=== PATIENT | female | born 1985 | race Caucasian/White ===

== ENCOUNTER 2021-05-03 12:08 | Emergency (ER) | payer SELFPAY ==
[~2021-05-03] VITALS: Ht 167.6 cm; Wt 81.6 kg
[2021-05-03] MEDS ORDERED: methylPREDNISolone SOD SUCC 125 MG/2 ML VL IM ONE (14:15)
[2021-05-03] MEDS ORDERED: EPINEPHrine HCL 1 MG/1 ML AMP SC ONE (14:15)
[2021-05-03] MEDS ORDERED: diphenhdrAMINE HCL 25 MG CAP PO ONE (14:15)
[2021-05-03 14:56] VITALS: BP 128/86
== END 2021-05-03 14:53 | disposition home or self-care (01) ==
LOC: ER 12:08
DX: T78.40XA Allergy, unspecified, initial encounter (principal); X58.XXXA Exposure to other specified factors, initial encounter; Y93.89 Activity, other specified; Y92.89 Other specified places as the place of occurrence of the external cause; Y99.8 Other external cause status
CPT/HCPCS: 96372; 99284; J0171; J2930

== ENCOUNTER 2024-01-25 19:27 | Emergency (ER) | payer OTHER ==
[~2024-01-25] VITALS: Ht 167.6 cm; Wt 73.0 kg
[2024-01-25 21:12] VITALS: BP 142/74; PULSE 90; RESP 18; TEMP 99.1; O2SAT 96
[2024-01-25] MEDS ORDERED: AUG875T PO (21:18)
[2024-01-25] MEDS ORDERED: IBUP1TAB5 PO (21:18)
[2024-01-25] MEDS ORDERED: OFL50TS OT (21:18)
[2024-01-25] MEDS: AMOXICILLIN/CLAVUL 875 MG TAB PO ONE (21:31)
[2024-01-25] MEDS: IBUPROFEN 800 MG TAB PO ONE (21:32)
== END 2024-01-25 21:16 | disposition home or self-care (01) ==
LOC: ER 19:27
DX: H66.93 Otitis media, unspecified, bilateral (principal); J45.909 Unspecified asthma, uncomplicated; F17.210 Nicotine dependence, cigarettes, uncomplicated

== ENCOUNTER 2024-02-02 00:06 | Emergency (ER) | payer OTHER ==
[~2024-02-02] VITALS: Ht 167.6 cm; Wt 112.1 kg
[~2024-02-02 00:06] MED LIST: AUG875T PO; IBUP1TAB5 PO; OFL50TS OT
[2024-02-02 01:42] LABS: Urine Bacteria MANY /hpf (None Seen); Urine Blood 2+ /uL (Negative); Urine Clarity HAZY (Clear); Urine Color Yellow (Yellow); Urine Mucus FEW (None Seen); Urine Protein, UAD 2+ (Negative); Urine Specific Gravity 1.025 (1.001-1.035); Urine Urobilinogen Normal (Negative); Urine WBC 3 /hpf (0 - 5)
[2024-02-02] MEDS ORDERED: IBUP-1456 PO (01:43)
[2024-02-02] MEDS ORDERED: ACET500T58 PO (01:43)
[2024-02-02 02:02] VITALS: BP 146/87; PULSE 95; RESP 17; TEMP 99.2; O2SAT 95
== END 2024-02-02 02:03 | disposition home or self-care (01) ==
LOC: ER 00:06
DX: B34.9 Viral infection, unspecified (principal); J45.909 Unspecified asthma, uncomplicated; F17.210 Nicotine dependence, cigarettes, uncomplicated; Z32.02 Encounter for pregnancy test, result negative
CPT/HCPCS: 81001; 81025

== ENCOUNTER 2024-10-10 22:16 | Emergency (ER) | payer OTHER ==
[~2024-10-10] VITALS: Ht 167.6 cm; Wt 114.5 kg
[~2024-10-10 22:16] MED LIST changes: +ACET500T58 PO; +IBUP-1456 PO
[2024-10-10 23:54] LABS: Rapid Influenza A Negative (Negative); Rapid Influenza B Negative (Negative)
[2024-10-10 23:55] LABS: COVID19 ANTIGEN SOFIA FIA NEGATIVE (NEGATIVE)
[2024-10-11] MEDS ORDERED: AZIT-43 PO (00:26)
[2024-10-11] MEDS ORDERED: BENZ100C97 PO (00:26)
[2024-10-11] MEDS ORDERED: METH4PAK PO (00:26)
[2024-10-11] MEDS ORDERED: ALBUAER3 IN (00:26)
--- NOTE | 2024-10-11 00:27 | ED.PDOC ---
SOB-HPI HPI Comments This is a 39-year-old female patient presents to the ED chief complaint cold- like symptoms x2 weeks. Patient complaining of productive cough, yellow mucus thickened nature. She also reports subjective fevers at home. Patient was also hypertensive on exam. She reports history of high blood pressure x4 years but not currently taking any medications. She denies chest pain, headache, shortness of breath, difficulty breathing, slurred speech, numbness, weakness, or any focal neuro deficits. Chief Complaint: Flu like Time Seen by MD: 22:32 Primary Care Provider: NONE Reviewed notes: Nurses Notes, Medications, Allergies Information Source: Patient Mode of Arrival: Ambulatory Past Medical History PAST MEDICAL HISTORY: Asthma Surgical History: Denies all surgeries DIRECTOR OF HEALTH EDUCATION History: No Pertinent DIRECTOR OF HEALTH EDUCATION History Family History Family History: Unknown Social History Smoker: Cigarettes Alcohol: Denies ETOH Use Drugs: Denies Drug Use Lives In: Home Constitutional: reports: fever; denies: chills, diaphoresis, fatigue, malaise, sweats, weakness, others EENTM: denies: blurred vision, double vision, ear bleeding, ear discharge, ear drainage, ear pain, ear ringing, eye pain, eye redness, hearing loss, mouth pain, mouth swelling, nasal discharge, nose bleeding, nose congestion, nose pain, photophobia, tearing, throat pain, throat swelling, voice changes, others Respiratory: reports: cough; denies: hemoptysis, orthopnea, SOB at rest, shortness of breath, SOB with excertion, stridor, wheezing, others Cardiovascular: denies: chest pain, dizzy spells, diaphoresis, Dyspnea on exertion, edema, irregular heart beat, left arm pain, lightheadedness, palpitations, PND, syncope, others Gastrointestinal: denies: abdomen distended, abdominal pain, blood streaked bowels, constipated, diarrhea, dysphagia, difficulty swallowing, hematemesis, melena, nausea, poor appetite, poor fluid intake, rectal bleeding, rectal pain, vomiting, others Genitourinary: denies: abnormal vagina bleeding, burning, dyspareunia, dysuria, flank pain, frequency, hematuria, incontinence, pain, , vagina discharge, urgency, others Neurological: denies: dizziness, fainting, headache, left sided numbness, left sided weakness, numbness, paresthesia, pre-existing deficit, right sided numbness, right sided weakness, seizure, speech problems, tingling, tremors, weakness, others Musculoskeletal: denies: back pain, gout, joint pain, joint swelling, muscle pain, muscle stiffness, neck pain, others Integumetry: denies: bruises, change in color, change in hair/nails, dryness, laceration, lesions, lumps, rash, wounds, others Allergic/Immunocompromised: denies: Difficulty Healing, Frequent Infections, Hives, Itching, others Hematologic/Lymphatic: denies: anemia, blood clots, easy bleeding, easy bruising, swollen glands, others Endocrine: denies: excessive hunger, excessive sweating, excessive thirst, excessive urination, flushing, intolerance to cold, intolerance to heat, unexplained weight gain, unexplained weight loss, others Psychiatric: denies: anxiety, bipolar disorder, depression, hopeless, panic disorder, schizophrenia, sleepless, suicidal, others Physical Exam General Appearance: No Apparent Distress, Normal HEENT: Normal ENT Inspection, Pharynx Normal, TMs Normal Neck: Full Range of Motion, Non-Tender Respiratory: Chest Non-Tender, No Accessory Muscle Use, No Respiratory Distress, Rhonchi Cardiovascular: No Edema, No JVD, No Murmur, No Gallop, Normal Peripheral Pulses, Regular Rate/Rhythm Breast Exam: Deferred Gastrointestinal: No Organomegaly, Non Tender, No Pulsatile Mass, Normal Bowel Sounds, Soft Genitalia: Deferred Pelvic: Deferred Rectal: Deferred Extremities: Normal capillary refill, Normal inspection, Normal range of motion, Non-tender, No pedal edema Musculoskeletal : Apperance: Normal Neurologic: Alert, scroll saw operator II-XII nml as Tested, No Motor Deficits, Normal Affect, Normal Mood, No Sensory Deficits Cerebellar Function: Normal Reflexes: Normal Skin: Dry, Normal Color, Warm Lymphatic: No Adenopathy Was a procedure done? Was a procedure done?: No Differential Dx Differential Diagnosis: Bronchitis, Pneumonia X-Ray, Labs, Meds, VS Vital Signs Date Time Temp Pulse Resp B/P (MAP) Pulse Ox O2 Delivery O2 Flow Rate FiO2 10/11/24 00:38 92 19 97 Room Air 10/11/24 00:38 98.6 92 19 184/88 (120) 97 98.6 10/10/24 22:25 97.8 99 16 173/92 (119) 96 10/10/24 22:25 16 96 Room Air* 0 21 Lab Test 10/10/24 23:05 Range/Units Influenza Type A Antigen Negative Negative Influenza Type B Antigen Negative Negative SARS-CoV-2 Antigen (Rapid) Negative NEGATIVE Current Medications Medications (Trade) Dose Ordered Sig/Sugey Route Start Time Stop Time Status Last Admin Dexamethasone Sodium Phosphate (Decadron Injection) 10 mg ONCE ONCE IM 10/11/24 00:45 10/11/24 00:46 DC 10/11/24 00:35 X-Ray, Labs, Meds, VS Comment Flu and COVID swab negative. Likely bacterial has been going on for 2 weeks start trial of azithromycin and Medrol Dosepak. 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 Furthermore, patient is started on low dose losartan 25 mg once daily. Advised her to follow up with her PCP pick up truck driver [id number] blood pressure cuff monitor her blood pressure daily record and bringing results to her next appointment. Patient was also advised to rest increase p.o. fluids with electrolytes. Return to the ER for chest pain, difficulty breathing, shortness of breath, worst headache of the life, slurred speech, or any neuro focal defic its. Patient agrees with discharge plan of care Time of 1ST Reevaluation: 00:22 Reevaluation 1ST: Improved Patient Education/Counseling: Diagnosis, Treatment, Prognosis, Need For Follow Up Family Education/Counseling: Diagnosis, Prognosis, Need For Follow Up Departure 1 Departure Time of Disposition: 00:27 Impression: Primary Impression: Upper respiratory infection Qualified Codes: J06.9 - Acute upper respiratory infection, unspecified Additional Impression: Hypertension Qualified Codes: I10 - Essential (primary) hypertension Disposition: 01 HOME / SELF CARE / HOMELESS Condition: Stable Additional Instructions: Monitor your blood pressure daily and record the readings and bring in to your next doctor's appointment. public works supervisor a blood pressure cuff [id number]. Return to the ER for chest pain, difficulty breathing, worst headache of the life, slurred speech, or any neuro deficits. e-Prescriptions Losartan Potassium (Losartan Potassium) 25 Mg Tab 1 TAB PO DAILY for 30 Days, #30 TAB 1 Refill Prov: GEOVANNA TINSLEY 10/11/24 Albuterol Sulfate (VENTOLIN MDI) 90 Mcg Ih 90 MCG IN Q6HP PRN for 14 Days, #1 INHALER Prov: GEOVANNA TINSLEY [employer]ODUCT LINE MANAGER 10/11/24 Benzonatate (Benzonatate) 100 Mg Cap 1-2 CAP PO Q4HR PRN for 4 Days, #30 CAP Prov: GEOVANNA TINSLEY PRODUCT LINE MANAGER 10/11/24 Methylprednisolone (Medrol Dosepak) 4 Mg Lj 4 MG PO UD for 6 Days, #21 TAB UAD Prov: GEOVANNA TINSLEY [facility] 10/11/24 Azithromycin (Azithromycin) 250 Mg Tab 250 MG PO DAILY MDD 500 for 5 Days, #6 TAB 0 Refills 2 TABLETS ORALLY ON DAY ONE, THEN 1 TABLET ORALLY DAILY FOR 4 DAYS Prov: GEOVANNA TINSLEY [facility] 10/11/24 Discharged With: Spouse Critical Care Note Critical Care Time?: No Stability Stability form required: No Heart Score Heart Score: Heart Score Response (Comments) Value History N/A 0 EKG N/A 0 Age <45 0 Risk Factors N/A 0 Troponin N/A 0 Total 0 GEOVANNA TINSLEY [facility] Oct 11, 2024 00:27
[2024-10-11] MEDS ORDERED: PROMETHAZINE W/CODEINE 5 ML ORAL SYRUP PO ONE (00:30)
[2024-10-11] MEDS: DexAMETHasone SOD PHOS 10MG/1ML VIAL INJ IM ONE (00:35)
[2024-10-11 00:38] VITALS: BP 184/88; PULSE 92; RESP 19; TEMP 98.6; O2SAT 97
[2024-10-11] MEDS ORDERED: LOSA-533 PO (00:38)
== END 2024-10-11 00:59 | disposition home or self-care (01) ==
LOC: ER 22:16
DX: J06.9 Acute upper respiratory infection, unspecified (principal); I10 Essential (primary) hypertension; J45.909 Unspecified asthma, uncomplicated; F17.210 Nicotine dependence, cigarettes, uncomplicated; Z79.899 Other long term (current) drug therapy; Z20.822 Contact with and (suspected) exposure to COVID-19
CPT/HCPCS: 36415; 87426; 87804; 96372; 99283; J1100

== ENCOUNTER 2024-11-10 17:34 | Emergency (ER) | payer OTHER ==
[~2024-11-10] VITALS: Ht 167.6 cm; Wt 113.9 kg
[~2024-11-10 17:34] MED LIST changes: +ALBUAER3 IN; +AZIT-43 PO; +BENZ100C97 PO; +LOSA-533 PO; +METH4PAK PO
[2024-11-10 18:21] VITALS: BP 150/76; PULSE 96; RESP 16; TEMP 98.9; O2SAT 96
[2024-11-10] MEDS: PROMETHAZINE W/CODEINE 5 ML ORAL SYRUP PO ONE (19:09)
--- NOTE | 2024-11-10 19:44 | ED.PDOC ---
SOB-HPI HPI Comments Save 39-year-old female presents to the ED chief complaint flu-like symptoms x4 days. Patient reports productive cough, fevers, nausea, and body fatigue. She states taking [id number] medications with some relief. She has also been here with her 2 kids with the same symptoms. He has difficulty breathing shor tness of breath chest pain diarrhea or vomiting. Chief Complaint: Flu like Time Seen by MD: 18:21 Primary Care Provider: NONE Reviewed notes: Nurses Notes, Medications, Allergies Information Source: Patient Mode of Arrival: Ambulatory Past Medical History PAST MEDICAL HISTORY: Asthma Surgical History: Denies all surgeries COOK BOX FILLER History: No Pertinent COOK BOX FILLER History Family History Family History: Unknown Social History Smoker: Cigarettes Alcohol: Denies ETOH Use Drugs: Denies Drug Use Lives In: Home Constitutional: reports: fatigue, fever; denies: chills, diaphoresis, malaise, sweats, weakness, others EENTM: reports: nasal discharge Respiratory: reports: cough; denies: hemoptysis, orthopnea, SOB at rest, shortness of breath, SOB with excertion, stridor, wheezing, others Cardiovascular: denies: chest pain, dizzy spells, diaphoresis, Dyspnea on exertion, edema, irregular heart beat, left arm pain, lightheadedness, palpitations, PND, syncope, others Gastrointestinal: reports: nausea; denies: abdomen distended, abdominal pain, blood streaked bowels, constipated, diarrhea, dysphagia, difficulty swallowing, hematemesis, melena, poor appetite, poor fluid intake, rectal bleeding, rectal pain, vomiting, others Genitourinary: denies: abnormal vagina bleeding, burning, dyspareunia, dysuria, flank pain, frequency, hematuria, incontinence, pain, , vagina discharge, urgency, others Neurological: denies: dizziness, fainting, headache, left sided numbness, left sided weakness, numbness, paresthesia, pre-existing deficit, right sided numbness, right sided weakness, seizure, speech problems, tingling, tremors, weakness, others Musculoskeletal: denies: back pain, gout, joint pain, joint swelling, muscle pain, muscle stiffness, neck pain, others Integumetry: denies: bruises, change in color, change in hair/nails, dryness, laceration, lesions, lumps, rash, wounds, others Allergic/Immunocompromised: denies: Difficulty Healing, Frequent Infections, Hives, Itching, others Hematologic/Lymphatic: denies: anemia, blood clots, easy bleeding, easy bruising, swollen glands, others Endocrine: denies: excessive hunger, excessive sweating, excessive thirst, excessive urination, flushing, intolerance to cold, intolerance to heat, unexplained weight gain, unexplained weight loss, others Psychiatric: denies: anxiety, bipolar disorder, depression, hopeless, panic disorder, schizophrenia, sleepless, suicidal, others Physical Exam General Appearance: No Apparent Distress, Normal HEENT: Pharyngeal Erythema, TMs Normal Neck: Full Range of Motion, Non-Tender Respiratory: Chest Non-Tender, Expiration, No Accessory Muscle Use, No Respir atory Distress, Wheezing Cardiovascular: No Edema, No JVD, No Murmur, No Gallop, Normal Peripheral Pulses, Regular Rate/Rhythm Breast Exam: Deferred Gastrointestinal: No Organomegaly, Non Tender, No Pulsatile Mass, Normal Bowel Sounds, Soft Genitalia: Deferred Pelvic: Deferred Rectal: Deferred Extremities: Normal capillary refill, Normal inspection, Normal range of motion, Non-tender, No pedal edema Musculoskeletal : Apperance: Normal Neurologic: Alert, enterprise software developer II-XII nml as Tested, No Motor Deficits, Normal Affect, Normal Mood, No Sensory Deficits Cerebellar Function: Normal Reflexes: Normal Skin: Dry, Normal Color, Warm Lymphatic: No Adenopathy Was a procedure done? Was a procedure done?: No Differential Dx Differential Diagnosis: Pneumonia X-Ray, Labs, Meds, VS Vital Signs Date Time Temp Pulse Resp B/P (MAP) Pulse Ox O2 Delivery O2 Flow Rate FiO2 11/10/24 18:21 96 16 96 Room Air 11/10/24 18:21 98.9 96 16 150/76 (100) 96 98.9 11/10/24 18:05 98.9 96 16 150/76 (100) 96 11/10/24 18:04 16 96 Room Air* 0 21 Lab Test 11/10/24 19:17 Range/Units Influenza Type A Antigen Negative Negative Influenza Type B Antigen Negative Negative Current Medications Medications (Trade) Dose Ordered Sig/Sugey Route Start Time Stop Time Status Last Admin Promethazine HCl/ Codeine (Phenergan W/ Codeine) 5 ml ONCE ONCE PO 11/10/24 19:00 11/10/24 19:01 DC 11/10/24 19:09 Dexamethasone Sodium Phosphate (Decadron Injection) 10 mg ONCE ONCE IM 11/10/24 19:45 11/10/24 19:46 DC 11/10/24 19:56 X-Ray, Labs, Meds, VS Comment Influenza flu swab Patient given promethazine with codeine for cough. Patient history of asthma symptoms x4 days with fevers noted expiratory wheezing we will start patient on azithromycin and albuterol inhaler and Medrol Dosepak. Advised to follow up with her PCP in 2-3 days as necessary. He is to rest increase p.o. fluids with electrolytes. ER return precautions given patient indicated understanding agrees with discharge plan of care Time of 1ST Reevaluation: 20:23 Reevaluation 1ST: Improved Patient Education/Counseling: Diagnosis, Treatment, Prognosis, Need For Follow Up Family Education/Counseling: Diagnosis, Treatment, Prognosis, Need For Follow Up Departure 1 Departure Time of Disposition: 20:19 Impression: Primary Impression: Asthma exacerbation Qualified Codes: J45.41 - Moderate persistent asthma with (acute) exacerbation Additional Impression: Influenza Disposition: 01 HOME / SELF CARE / HOMELESS Condition: Stable e-Prescriptions Oseltamivir Phosphate (Tamiflu) 75 Mg Cap 1 CAP PO BID for 5 Days, #10 CAP Prov: GEOVANNA TINSLEY 11/10/24 Azithromycin (Azithromycin) 250 Mg Tab 250 MG PO DAILY MDD 500 for 5 Days, #6 TAB 0 Refills 2 TABLETS ORALLY ON DAY ONE, THEN 1 TABLET ORALLY DAILY FOR 4 DAYS Prov: GEOVANNA TINSLEY 11/10/24 Discharged With: Self Critical Care Note Critical Care Time?: No Stability Stability form required: No Heart Score Heart Score: Heart Score Response (Comments) Value History N/A 0 EKG N/A 0 Age N/A 0 Risk Factors N/A 0 Troponin N/A 0 Total 0 GEOVANNA TINSLEY Nov 10, 2024 19:44
[2024-11-10] MEDS: DexAMETHasone SOD PHOS 10MG/1ML VIAL INJ IM ONE (19:56)
[2024-11-10 20:04] LABS: Rapid Influenza A Negative (Negative); Rapid Influenza B Negative (Negative)
[2024-11-10] MEDS ORDERED: OSEL75CA5 PO (20:22)
== END 2024-11-10 20:33 | disposition home or self-care (01) ==
LOC: ER 17:34
DX: J45.901 Unspecified asthma with (acute) exacerbation (principal); J11.1 Influenza due to unidentified influenza virus with other respiratory manifestations; F17.210 Nicotine dependence, cigarettes, uncomplicated
CPT/HCPCS: 87804; 96372; 99283; J1100